=== PATIENT | male | born 1965 | race African-American/Black ===

== ENCOUNTER 2021-12-30 10:59 | Emergency (ER) | payer OTHER, SELFPAY ==
--- NOTE | 2021-12-30 11:10 | ED.GENADULT ---
HPI - General Adult General Chief complaint: Dizziness Stated complaint: HPB Time Seen by Provider: 12/30/21 11:14 Source: patient and RN notes reviewed Mode of arrival: ambulatory Limitations: no limitations History of Present Illness HPI narrative: 56 y/o male presented for c/o feeling dizzy with high blood pressure. States he woke this morning feeling well, then slowly started feeling dizzy, described as 'pressure on head' denies headache. Endorses watery eyes and states he needs to try harder to focus but denies vision changes. He drove himself to work in [facility], then went to [employer] to check BP because he still felt bad. BP 180/100 at that time. He then drove back to [place] for [facility]. BP remains high. Denies chest pain, shortness of breath, palpitations, diaphoresis, cough or edema.Denies numbness tingling or weakness of extremities. [facility] [place] patient over to the ER yes over the main main room the patient. Denies hx HTN, states he has not seen pcp in many years. Related Data Allergies Allergy/AdvReac Type Severity Reaction Status Date / Time No Known Allergies Allergy Verified 12/30/21 11:25 Review of Systems Review of Systems: CONSTITUTIONAL: Denies body aches, fever, chills, or sweats. EYES: Reports watery eyes ENT: Denies rhinorrhea, congestion, sore throat, or otalgia. CARDIOVASCULAR: Denies chest pain, palpitations, or edema. RESPIRATORY: Denies cough or dyspnea. GASTROINTESTINAL: Denies abdominal pain, nausea, vomiting, or diarrhea. GENITOURINARY: Denies dysuria or hematuria. NEUROLOGIC: Endorses headache, denies numbness, tingling, or weakness PSYCH: Denies depression or anxiety. All systems reviewed & are unremarkable except as noted in HPI and below PMFSH Comments At time of signature, I have reviewed and agree with nursing past medical, surgical, social and family history unless otherwise noted. Please see nursing chart for further information. There is no relevant family history pertinent to the presenting complaint Exam Narrative: GENERAL: Well-appearing HEAD: Normocephalic, atraumatic. EYES: PERRLA, EOMI. ENT: Mucous membranes pink and moist. No rhinorrhea. NECK: Normal AROM. Supple. No lymphadenopathy. CHEST: No respiratory distress. Clear to auscultation. HEART: Regular rate and rhythm. No murmur appreciated. Normal peripheral pulses. ABDOMEN: Soft, nontender, nondistended, normal active bowel sounds. SKIN: Warm, dry, no rash. Capillary refill normal. Normal skin turgor. NEURO:No focal deficits. Alert and oriented x3. EOMs intact without nystagmus. No facial droop/asymmetry noted bilaterally. Grimace intact. Intact sensation in face. Hearing intact bilaterally. Shoulder shrug intact. Strength 5/5 bilateral upper extremities. Ambulatory exam with a normal based, steady gait. PSYCH: Normal affect. Course Course Emergency Course: Patient is aware of diagnosis, understands and agrees to treatment plan. Anticipatory guidance given. Patient agrees to follow-up as directed and is aware of reasons to seek care at the emergency department. Portions of this record may have been created with voice recognition software Level of Care: [facility] Visit Vital Signs Vital signs: Vital Signs Temperature 98.6 F 12/30/21 11:11 Pulse Rate 72 12/30/21 11:11 Respiratory Rate 16 12/30/21 11:11 Blood Pressure 178/100 H 12/30/21 11:11 Pulse Oximetry 99 12/30/21 11:11 Oxygen Delivery Room Air 12/30/21 11:11 Temperature 98.6 F 12/30/21 11:11 Pulse Rate 72 12/30/21 11:11 Respiratory Rate 16 12/30/21 11:11 Blood Pressure 178/100 H 12/30/21 11:11 Pulse Oximetry 99 12/30/21 11:11 Oxygen Delivery Room Air 12/30/21 11:11 Transfer Transfered to: [facility] Transportation: Other (private vehicle) Transfer rationale: Pt is agreeable to transfer to ER for further evaluation of HTN and dizziness. Requests transfer to [facility]
[2021-12-30 11:11] VITALS: BP 178/100; PULSE 72; RESP 16; TEMP 37; O2SAT 99
== END 2021-12-30 11:35 | disposition home or self-care (01) ==
PROVIDERS: Emergency Provider Nurse Practitioner Family
DX: R42 Dizziness and giddiness (principal); R03.0 Elevated blood-pressure reading, without diagnosis of hypertension
CPT/HCPCS: 99202; G0463